=== PATIENT | female | born 1960 | race Caucasian/White ===

== ENCOUNTER 2024-07-26 23:08 | Day surgery (SDC) | payer MEDICAID, SELFPAY ==
[2024-07-26 23:08] VITALS: BMI 33.0
--- NOTE | 2024-07-26 23:11 | EKG_ITS ---
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
[2024-07-26 23:32] VITALS: BP 142/83; PULSE 78; RESP 19; TEMP 36.8; O2SAT 96
--- NOTE | 2024-07-26 23:44 | PD.EDRME ---
Rapid Medical Screening Exam RME Arrival date/time: 07/26/24 23:08 63-year-old female reports with complaints of epigastric abdominal pain that radiates to the back x 1 day Chief Complaint: Abdominal Pain Time Seen by Provider: 07/26/24 23:22 Vital signs: Vital Signs Temperature 98.2 F 07/26/24 23:32 Pulse Rate 78 07/26/24 23:32 Respiratory Rate 19 07/26/24 23:32 Blood Pressure 142/83 H 07/26/24 23:32 Pulse Oximetry (%) 96 07/26/24 23:32 Oxygen Delivery Method Room Air 07/26/24 23:32
[2024-07-27] VITALS (11 sets, daily range): BP systolic 114–161; BP diastolic 67–114; PULSE 66–83; RESP 15–20; TEMP 36.4–36.9; O2SAT 95–100
--- NOTE | 2024-07-27 | XR_ITS ---
Examination: Abdomen sonogram, Limited Date and time of exam: July 27, 2024 0033 hrs. Indications: Onset epigastric pain nausea vomiting today Technique: Real-time sky scale transabdominal sonographic images of the upper abdomen obtained. Findings: Multiple gallstones Gallbladder wall is thickened 0.56 cm Common bile duct 0.3 cm Pancreas obscured by bowel gas Liver 16 cm fatty infiltration lobular contour Normal hepatopedal portal venous flow Patent IVC Impression: Cholelithiasis Suspicious for acute cholecystitis, consider HIDA scan or MRCP follow-up Cirrhosis versus primary hepatocellular disease
[2024-07-27] MEDS: MG HYD/AL HYD/SIME (Maalox Reg) SUSP 30 ML UDC PO (00:14)
[2024-07-27] MEDS: LIDOCAINE VISCOUS 2% 15 ML UDC PO (00:14)
[2024-07-27 00:40] LABS: Alanine Aminotransferase 18 U/L (10-49); Albumin, Serum 4.8 gm/dL (3.4-4.8); Albumin/Globulin Ratio 1.8 (1.2-2.2); Alkaline Phosphatase 61 U/L (46-116); Anion Gap 8 (7-16); Aspartate Amino Transferase 15 U/L (0-34); BUN/Creatinine Ratio 11 Ratio (12-20); Bilirubin,Total 0.7 mg/dL (0.3-1.2); Blood Urea Nitrogen 12 mg/dL (9-23); Calcium 10.3 mg/dL (8.3-10.6); Calcium (Corrected) 10.3 mg/dL (8.5-10.1); Carbon Dioxide 30.4 mMol/L (20.0-31.0); Chloride 101 mMol/L (98-107); Creatinine (Component) 1.1 mg/dL (0.6-1.3); Estimated Creatinine Clearance 61.7 mL/min (>60); Globulin 2.7 gm/dL (2.3-3.5); Glucose 150 mg/dL (74-106); Lipase 28 U/L (12-53); Osmolality,Calculated 280 (275-295); Potassium 3.9 mMol/L (3.4-5.1); Sodium 139 mMol/L (136-145); Total Protein 7.5 gm/dL (5.7-8.2); eGFR 57 See Note
--- NOTE | 2024-07-27 00:42 | EDNOTE_ITS ---
ED Abdominal Pain RME/HPI General Chief Complaint: Abdominal Pain Stated complaint: UPPER ABD PAIN X 1DAY Time seen by provider: 07/26/24 23:22 Arrival date/time: 07/26/24 23:08 RME / HPI RME / HPI narrative: 07/26/24 23:08 63-year-old female reports with complaints of epigastric abdominal pain that radiates to the back x 1 day ----- Dr. Carroll?s Main ED Evaluation: 63yo female presents to the ED for a chief co mplaint of intermittent epigastric pain x 2 days. Patient states her pain radiates to her RUQ and her back. She states her pain started after she ate a piece of candy 2 days ago, but subsided on its own. She states she ate a bag of potato chips tonight and her pain returned, so she came in for evaluation. She endorses having a history of problems with gas in the past. She denies any N/V/D, fever, chills or any other associated symptoms. Denies any previous abdominal surgeries. No known allergies. Related Data Home Medications ?Medication ?Instructions ?Recorded ?Confirmed celecoxib 200 mg capsule 200 mg PO QDAY 12/24/19 04/12/20 duloxetine 30 mg capsule,delayed 30 mg PO BID 12/24/19 04/12/20 release hydrocodone 10 mg-acetaminophen 1 tab PO Q6H PRN Pain (Scale Score 12/24/19 04/12/20 325 mg tablet 7-10) tramadol 100 mg tablet 100 mg PO QID 12/24/19 04/12/20 meloxicam 15 mg tablet 15 mg PO QDAY 04/12/20 04/12/20 Previous Rx's ?Medication ?Instructions ?Recorded oxycodone-acetaminophen 10 mg-325 1 tab PO Q6H PRN pain #10 tabs 07/27/24 mg tablet (Percocet) Allergies Allergy/AdvReac Type Severity Reaction Status Date / Time No Known Allergies Allergy Verified 07/27/24 13:47 Review of Systems Review of Systems Systems Reviewed: All systems reviewed, normal except as documented Past Medical History Past Medical History NEUROLOGIC: Negative Neurological Disorders or Seizures CARDIAC: Positive Heart Murmur; Negative Cardiac Disorders, Congestive Heart Failure, Edema or Cellulitis RESPIRATORY: Negative Chronic Obstructive Pulmonary Disease (COPD) or Asthma GASTROINTESTINAL: Negative Gastrointestinal Disorders or Hepatitis GENITOURINARY: Negative Genitourinary Disorders or Renal Disease REPRODUCTIVE: Negative Previous Pregnancies MUSCULOSKELETAL: Positive Musculoskeletal Disorders and Arthritis ENDOCRINE: Negative Endocrine Disorders, Diabetes Mellitus Type 1 or Diabetes Mellitus Type 2 HEMATOLOGIC: Negative Blood Disorders or Sickle Cell Disease PSYCHO/SOCIAL: Positive Depression and Anxiety OTHER HISTORY: Positive Chicken Pox; Negative Hospitalization, Autoimmune Disease, Shingles, Falls, Blood Transfusions, Blood Transfusion Reaction, Anesthesia Reactions, Chemotherapy, Radiation Therapy, MRSA, Measles, Mumps or Cancer Family History FAMILY HISTORY: Positive Family Psychiatric Problems, Family Respiratory Disorders, Family Cardiac Disorders, Family Cancer and Family Surgery; Negative Family Gastrointestinal Problems or Family Anesthesia Reaction Surgical History SURGICAL: Negative Cardiac Surgery or Pacemaker Social History SMOKING STATUS: Never smoker SUBSTANCE USE: does not use ED Exam Narrative Physical exam: GENERAL APPEARANCE: AxOx4, generally well-appearing, no acute distress. HEENT: NC, AT. MMM. EOMI, clear conjunctiva, oropharynx clear. NECK: Supple without lymphadenopathy. No stiffness or restricted ROM. HEART: Normal rate and regular rhythm, normal S1/S1, no m/r/g LUNGS: CTAB, moving air well. No crackles or wheezes are heard. ABDOMEN: Soft, yarvpamw-au-bzhelt epigastric and RUQ pain with involuntary guarding, unable to assess for Valencia sign, nondistended with good bowel sounds heard. BACK: No midline C/T/L spine pain or deformity, No CVAT, no obvious deformity. EXTREMITIES: Without cyanosis, clubbing or edema. MUSCULOSKELETAL: FROM of all major joints, no chest tenderness NEUROLOGICAL: Grossly nonfocal. Alert and oriented, moving all 4 extremities. CN not formally tested but appear grossly intact. Skin: Warm and dry without any rash. Course Quality Measures none Orders Category Date Time Status Place in Surgical Day Care Routine Admission 07/27/24 07:37 Active Activity as Tolerated Routine Care 07/27/24 07:37 Ordered COVID-19 Screening Questionnaire NOW Care 07/27/24 07:28 Completed DC Home When Criteria Met . Care 07/27/24 13:13 Completed Decision to Admit X1 Care 07/27/24 07:28 Completed EKG (ED ONLY) *Do not use* NOW Care 07/26/24 23:12 Completed NPO NOW Care 07/27/24 02:53 Completed Obtain Written Consent For: NOW Care 07/27/24 07:37 Completed Diet NPO (NOW) Diet 07/27/24 02:53 Active Discharge Routine Discharge 07/27/24 13:35 Active EKG (ED Only) Stat Exams 07/26/24 23:11 Draft US abdomen limited Stat Exams 07/27/24 00:00 Completed CBC Stat Lab 07/26/24 23:59 Completed CMP [Comprehensive Metabolic Panel] Stat Lab 07/26/24 23:59 Completed Lipase Stat Lab 07/26/24 23:59 Completed Acetaminophen Ivpb [Ofirmev Inj] 100 ml Med 07/27/24 12:19 Discontinued IV .STK-MED Acetaminophen Supp [Tylenol Supp] Med 07/27/24 01:22 Discontinued 650 mg IL X1 ONE Acetaminophen Tab [Tylenol Tab] Med 07/27/24 07:37 Discontinued 650 mg PO Q6H PRN Acetaminophen Tab [Tylenol Tab] Med 07/27/24 01:36 Discontinued 650 mg PO X1 ONE Bupivacaine Mpf 0.5% [Sensorcaine-Mpf Inj 0.5%] Med 07/27/24 12:03 Discontinued 30 ml .ROUTE .STK-MED ONE Cefoxitin [Mefoxin Inj] Med 07/27/24 12:29 Discontinued 2 gm .ROUTE .STK-MED ONE HYDROmorphone INJ [Dilaudid Inj] Med 07/27/24 13:13 Discontinued 0.5 mg IV Q5M PRN Ketorolac Inj [Toradol Inj] Med 07/27/24 01:36 Discontinued 15 mg IM X1 ONE Ketorolac Inj [Toradol Inj] Med 07/27/24 07:37 Discontinued 15 mg IVP Q6H PRN Ketorolac Inj [Toradol Inj] Med 07/27/24 01:22 Discontinued 15 mg IVP X1 ONE Lidocaine 2% Pf 5 ml [Xylocaine 2% Pf 5 ml] Med 07/27/24 11:49 Discontinued 5 ml .ROUTE .STK-MED ONE Lidocaine 2% Viscous [Xylocaine 2% Viscous] Med 07/26/24 23:59 Discontinued 15 ml PO X1 ONE Morphine Inj Med 07/27/24 07:37 Discontinued 2 mg IVP Q4H PRN Ondansetron Inj [Zofran Inj] Med 07/27/24 13:13 Discontinued 4 mg IV X1 ONE PHENYLEPHRINE INJ in NS [Sergey-synephrine Inj/Ns] Med 07/27/24 12:30 Discontinued 1,000 mcg .ROUTE .STK-MED ONE Phenylephrine Inj [Phenylephrine] Med 07/27/24 12:30 Discontinued 10 mg .ROUTE .STK-MED ONE Piper/Tazo 3.375 gm [Zosyn] Med 07/27/24 14:00 Discontinued 3.375 gm in 50 ml IV Q8HR Piper/Tazo 3.375 gm [Zosyn] Med 07/27/24 08:00 Discontinued 3.375 gm in 50 ml IV X1 Propofol Inj [Diprivan Inj] Med 07/27/24 11:49 Discontinued 200 mg IV .STK-MED ONE Rocuronium Inj [Zemuron Inj] Med 07/27/24 11:49 Discontinued 100 mg .ROUTE .STK-MED ONE Sodium Chloride 0.9% 1000 ml [Ns] 1,000 ml Med 07/27/24 03:00 Discontinued IV 100 mls/hr Sodium Chloride 0.9% 1000 ml [Ns] 1,000 ml Med 07/27/24 07:45 Discontinued IV 125 mls/hr Sugammadex Inj [Bridion Inj] Med 07/27/24 12:59 Discontinued 200 mg .ROUTE .STK-MED ONE ePHEDrine SULF INJ Med 07/27/24 12:37 Discontinued 50 mg .ROUTE .STK-MED ONE fentaNYL INJ [Sublimaze Inj] Med 07/27/24 11:49 Discontinued 100 mcg .ROUTE .STK-MED ONE fentaNYL INJ [Sublimaze Inj] Med 07/27/24 12:49 Discontinued 100 mcg .ROUTE .STK-MED ONE fentaNYL INJ [Sublimaze Inj] Med 07/27/24 13:13 Discontinued 25 mcg IV Q5M PRN fentaNYL INJ [Sublimaze Inj] Med 07/27/24 13:13 Discontinued 50 mcg IV Q5M PRN hydrALAZINE INJ [Apresoline Inj] Med 07/27/24 13:13 Discontinued 5 mg IV Q20MIN PRN mg Hyd/Al Hyd/Mar Susp [Maalox Susp] Med 07/26/24 23:59 Discontinued 30 ml PO X1 ONE Oxygen Delivery PRN RT 07/27/24 13:13 Completed Reevaluation(s) Reevaluation #1: Patient reports minimal improvement of her symptoms after receiving GI cocktail. Additional medications ordered. Time: 01:20 Vital Signs Vital signs: Vital Signs Temperature 98.2 F 07/26/24 23:32 Pulse Rate 78 07/26/24 23:32 Respiratory Rate 19 07/26/24 23:32 Blood Pressure 142/83 H 07/26/24 23:32 Pulse Oximetry (%) 96 07/26/24 23:32 Oxygen Delivery Method Room Air 07/26/24 23:32 Pulse ox is 96% on room air, which is normal according to my interpretation. Abdominal Pain MDM MDM Narrative MDM Narrative:: Scribe Attestation: 07/27/24 - Shanell Cruz am scribing for and in the presence of Dr. Carroll. Patient data External records reviewed:: [facility] previous records (Per chart review, patient has no relevant previous ED visits.) Clinical information provided by:: patient Social determinants that could affect healthcare access:: none Patient has the following chronic illnesses:: none How is presenting disease/condition affected by chronic disease/condition?: no chronic disease Evaluation data The following diagnostics were reviewed and interpreted by me:: lab results, radiology exam(s) and EKG tracing(s) Lab and/or radiology exams considered but not ordered:: none Interpretation Summary: WBC count is slightly elevated at 11.2, CMP is normal, Lipase is normal, according to my interpretation. EKG done at 2329, NSR, rate of 76, normal intervals, normal axis, no acute ST or T-wave changes, according to my interpretation. ---- Telerad Preliminary Report Draft Patient: [facility]REY [facility]ARC[facility]. Record#: [id number] Birthdate: 1960 Age/Sex: 63 / F Location: [facility] Attending Dr: Ordering Physician: Date of Service: Procedure(s): Accession Number(s): cc: ~ Gallbladder ultrasound with doppler and wave doppler spectral analysis. July 27, 2024 at 0033 hours Clinical history: Epigastric abdominal pain. Comparison: No prior study is available for comparison. Findings: The study is limited by bowel gas. Echogenic liver. Lobular liver margins. Gallbladder wall thickening. Gallstones. No pericholecystic fluid is identified. The common duct is normal in caliber at 0.3 cm. No free fluid is demonstrated on the submitted images. The portal vein is patent with hepatopetal flow and normal wave Doppler spectral analysis. Impression: Gallstones and gallbladder wall thickening are suspicious for acute cholecystitis. Liver steatosis and possible cirrhosis. Report Electronically Signed By: Rakesh Gonzalez 07/27/2024 2:10:13 AM [EST] Medications / Prescriptions Medications or Prescriptions considered but not ordered:: none Medication administrations:: Medication Administration History Discontinued Medications Acetaminophen (Acetaminophen Supp 650 Mg Supp) 650 mg IL X1 ONE Stop: 07/27/24 01:23 Last Admin: 07/27/24 01:39 Dose: Not Given Documented By: CVL Non-Admin Reason: Cancelled by Provider Acetaminophen (Acetaminophen 325 Mg Tablet) 650 mg PO X1 ONE Stop: 07/27/24 01:37 Last Admin: 07/27/24 01:42 Dose: 650 mg Documented By: QUINCY Acetaminophen (Acetaminophen 325 Mg Tablet) 650 mg PO Q6H PRN PRN Reason: PAIN SCALE 1-3 (mild Stop: 08/26/24 07:36 Al Hydrox/Mg Hydrox/Simethicone (Mg Hyd/Al Hyd/Mar (Maalox Reg) Susp 30 Ml Udc) 30 ml PO X1 ONE Stop: 07/27/24 00:00 Last Admin: 07/27/24 00:14 Dose: 30 ml Documented By: Bupivacaine HCl (Bupivacaine Mpf 0.5% 10 Ml Vial) Confirm Administered Dose 30 ml .ROUTE .STK-MED ONE Stop: 07/27/24 12:04 Cefoxitin Sodium (Cefoxitin Sod Inj 1 Gm Vial) Confirm Administered Dose 2 gm .ROUTE .STK-MED ONE Stop: 07/27/24 12:30 Ephedrine Sulfate (Ephedrine Sulf Inj 50 Mg/Ml Vial) Confirm Administered Dose 50 mg .ROUTE .STK-MED ONE Stop: 07/27/24 12:38 Fentanyl Citrate (Fentanyl Cit Inj 50 Mcg/Ml Amp 2ml) Confirm Administered Dose 100 mcg .ROUTE .STK-MED ONE Stop: 07/27/24 11:50 Fentanyl Citrate (Fentanyl Cit Inj 50 Mcg/Ml Amp 2ml) Confirm Administered Dose 100 mcg .ROUTE .STK-MED ONE Stop: 07/27/24 12:50 Fentanyl Citrate (Fentanyl Cit Inj 50 Mcg/Ml Amp 2ml) 25 mcg IV Q5M PRN PRN Reason: PAIN SCALE 1-3 (mild Stop: 07/27/24 15:13 Fentanyl Citrate (Fentanyl Cit Inj 50 Mcg/Ml Amp 2ml) 50 mcg IV Q5M PRN PRN Reason: PAIN SCALE 4-6 (Moderate Stop: 07/27/24 15:13 Hydralazine HCl (Hydralazine Inj 20 Mg/Ml Vial) 5 mg IV Q20MIN PRN PRN Reason: SBP > 180 Stop: 07/27/24 15:13 Hydromorphone HCl (Hydromorphone Inj 2 Mg/Ml Vial) 0.5 mg IV Q5M PRN PRN Reason: PAIN SCALE 7-10 (Severe Stop: 07/27/24 15:13 Sodium Chloride (Ns) 1,000 mls @ 100 mls/hr IV .Q10H SUHAS Stop: 08/26/24 02:59 Last Infusion: 07/27/24 08:27 Dose: 0 mls/hr Documented By: Admin: 07/27/24 03:12 Dose: 100 mls/hr Documented By: QUINCY Sodium Chloride (Ns) 1,000 mls @ 125 mls/hr IV .Q8H [facility] Stop: 08/26/24 07:44 Last Admin: 07/27/24 08:28 Dose: 125 mls/hr Documented By: ANTONINA Piperacillin/Tazobactam/Dextrose (Zosyn) 3.375 gm in 50 mls @ 12.5 mls/hr IV Q8HR [facility]; Protocol Stop: 08/03/24 13:59 Piperacillin/Tazobactam/Dextrose (Zosyn) 3.375 gm in 50 mls @ 100 mls/hr IV X1 ONE Stop: 07/27/24 08:29 Last Infusion: 07/27/24 09:04 Dose: Infused Documented By: Admin: 07/27/24 08:33 Dose: 100 mls/hr Documented By: ANTONINA Acetaminophen (Ofirmev Inj) Confirm Administered Dose 100 mls @ ud IV .STK-MED ONE Stop: 07/27/24 12:20 Ketorolac Tromethamine (Ketorolac Inj 30 Mg/Ml Vial) 15 mg IVP X1 ONE Stop: 07/27/24 01:23 Last Admin: 07/27/24 01:39 Dose: Not Given Documented By: CVL Non-Admin Reason: Cancelled by Provider Ketorolac Tromethamine (Ketorolac Inj 60 Mg/2 Ml Vial) 15 mg IM X1 ONE Stop: 07/27/24 01:37 Last Admin: 07/27/24 01:42 Dose: 15 mg Documented By: QUINCY Ketorolac Tromethamine (Ketorolac Inj 30 Mg/Ml Vial) 15 mg IVP Q6H PRN PRN Reason: PAIN SCALE 4-6 (Moderate Stop: 08/01/24 07:36 Last Admin: 07/27/24 08:39 Dose: 15 mg Documented By: DB Lidocaine HCl (Lidocaine Viscous 2% 15 Ml Udc) 15 ml PO X1 ONE Stop: 07/27/24 00:00 Last Admin: 07/27/24 00:14 Dose: 15 ml Documented By: Lidocaine HCl (Lidocaine Inj Pf 2% 5 Ml Vial) Confirm Administered Dose 5 ml .ROUTE .STK-MED ONE Stop: 07/27/24 11:50 Morphine Sulfate (Morphine Sulf Inj 10 Mg/Ml Vial) 2 mg IVP Q4H PRN PRN Reason: PAIN SCALE 4-10(Mod-Sev Ondansetron HCl (Ondansetron Inj 2 Mg/Ml Inj 2 Ml) 4 mg IV X1 ONE Stop: 07/27/24 13:14 Phenylephrine HCl (Phenylephrine Inj 10 Mg/Ml Vial) Confirm Administered Dose 10 mg .ROUTE .STK-MED ONE Stop: 07/27/24 12:31 Phenylephrine HCl (Phenylephrine Inj In Ns 100 Mcg/Ml 10 Ml Syringe) Confirm Administered Dose 1,000 mcg .ROUTE .STK-MED ONE Stop: 07/27/24 12:31 Propofol (Propofol Inj 10 Mg/Ml Vial 20 Ml) Confirm Administered Dose 200 mg IV .STK-MED ONE Stop: 07/27/24 11:50 Rocuronium Brimley (Rocuronium Inj 10 Mg/Ml Vial 10 Ml) Confirm Administered Dose 100 mg .ROUTE .STK-MED ONE Stop: 07/27/24 11:50 Sugammadex Sodium (Sugammadex Inj 100 Mg/Ml 2ml Vial) Confirm Administered Dose 200 mg .ROUTE .STK-MED ONE Stop: 07/27/24 13:00 see above Consultations Consultation(s) initiated? (list below): Yes Consultation #1 (Physician, Specialty, Details): Discussed case with [Dr. Reynoso] from [general surgery] regarding [consultation]. Discussed patients ED course, exam findings, labs, and radiology results. Will evaluate the patient in the morning. Time: 05:25 Diagnosis Differential diagnosis abdominal pain: diverticulitis, pancreatitis and other (cholelithiasis, cholecystitis) Most likely diagnosis given after review of the tests above:: see below Admission Indicated Admission indicated?: not indicated Explain why admission is indicated or not indicated:: pending evaluation by Dr. Reynoso. Admission Request Was there a request for admission?: No Disposition Plan Disposition Plan: other (specify) (Signed out to Dr. Fishman at [address] Reynoso.) Discharge Plan Plan Patient Disposition: Admit Acute Care w/in Hospital Disposition Comment: Dr. Reynoso Problem List Clinical Impression: Acute cholecystitis Patient/Caregiver Discharge Instructions Other Activity Instructions:: Avoid lifting objects greater than 10 pounds for 6 weeks You may resume showering in 2 days, on 07/29 Avoid bathing or swimming for 2 weeks Your stitches will not need to be removed If you develop worsening pain, nausea/vomiting, fever or jaundice please seek care in ER During the surgery we fill your abdomen with air in order to see the structures. Some of this air may linger after surgery and cause pain with deep breaths and/or pain that is referred to the shoulder. This will go away with time, walking will help the air to absorb faster
[2024-07-27 01:00] LABS: Basophils % (Auto) 0 % (0-2.5); Eosinophils # (Auto) 0.1 Thou/mm3 (0.0-0.5); Eosinophils % (Auto) 1 % (0-10); Hematocrit 45.4 % (36.0-46.0); Hemoglobin 15.4 g/dL (12.0-16.0); Immature Granulocytes % (Auto) 0 % (0-0); Immature Granulocytes Auto 0.03 Thou/mm3 (0.00-0.00); Lymphocytes # (Auto) 1.9 Thou/mm3 (1.0-4.8); Lymphocytes % (Auto) 17 % (10-50); Mean Corpuscular HGB Conc 33.9 g/dl (31.0-37.0); Mean Corpuscular Hemoglobin 30.9 pg (25.0-35.0); Mean Corpuscular Volume 91 fL (80-100); Monocytes # (Auto) 0.7 Thou/mm3 (0.0-0.8); Monocytes % (Auto) 6 % (0-12); Neutrophils # (Auto) 8.4 Thou/mm3 (1.8-7.7); Neutrophils % (Auto) 75 % (37-80); Nucleated Red Blood Cell % 0 /100 WBC (0); Platelet Count 180 Thou/mm3 (140-440); RDW Standard Deviation 42.2 fL (36.4-46.3); Red Blood Count 4.99 Miln/mm3 (4.00-5.20); White Blood Count 11.2 Thou/mm3 (3.6-11.0)
[2024-07-27] MEDS: KETOROLAC INJ 60 MG/2 ML VIAL 15 MG IM (01:42)
[2024-07-27] MEDS: ACETAMINOPHEN 325 MG TABLET 650 MG PO (01:42)
--- NOTE | 2024-07-27 02:10 | PRELIM_ITS ---
Gallbladder ultrasound with doppler and wave doppler spectral analysis. July 27, 2024 at 0033 hour s Clinical history: Epigastric abdominal pain.Comparison: No prior study is available for comparison. Findings:The study is limited by bowel gas.Echogenic liver. Lobular liver margins.Gallbladder wall t hickening.Gallstones.No pericholecystic fluid is identified. The common duct is normal in caliber at 0.3 cm. No free fluid is demonstrated on the submitted images.The portal vein is patent with hepatop etal flow and normal wave Doppler spectral analysis.Impression:Gallstones and gallbladder wall thicke yanet are suspicious for acute cholecystitis.Liver steatosis and possible cirrhosis. Report Electronic ally Signed By: Rakesh Gonzalez 07/27/2024 2:10:13 AM [EST]
[2024-07-27] MEDS: SODIUM CHLORIDE 0.9% 1000 ML 1,000 ML 100 ML IV (03:12)
--- NOTE | 2024-07-27 07:39 | PD.SURHP ---
HPI HPI 63F presenting with abdominal pain and nausea. Pt reports pain began yesterday after eating and has been present for 24 hours, it is severe in the RUQ and associated with nausea. She denies any history of similar pain, fever or diarrhea. Workup is indicative of acute cholecystitis PMH: Arthritis, depression PSHx: Extremity surgeries Meds: celecoxib, meloxicam Allergies: NKDA Social hx: Nonsmoker, no EtOH use Family hx: father had lung CA in his 40s Review of Systems Review of Systems ROS Unobtainable: All systems reviewed & no additional complaints except as documented Meds Home Medications and Allergies Home Medications ?Medication ?Instructions ?Recorded ?Confirmed ?Type celecoxib 200 mg capsule 200 mg PO QDAY 12/24/19 04/12/20 History duloxetine 30 mg capsule,delayed 30 mg PO BID 12/24/19 04/12/20 History release hydrocodone 10 mg-acetaminophen 1 tab PO Q6H PRN Pain (Scale Score 12/24/19 04/12/20 History 325 mg tablet 7-10) tramadol 100 mg tablet 100 mg PO QID 12/24/19 04/12/20 History meloxicam 15 mg tablet 15 mg PO QDAY 04/12/20 04/12/20 History Allergies Allergy/AdvReac Type Severity Reaction Status Date / Time No Known Allergies Allergy Verified 07/26/24 23:10 Exam Vital Signs Temp Pulse Resp BP Pulse Ox O2 Del Method 98.0 F 69 18 130/74 98 Room Air 07/27/24 01:44 07/27/24 01:44 07/27/24 01:44 07/27/24 01:44 07/27/24 01:44 07/27/24 01:44 Constitutional Constitutional: no acute distress Routine Respiratory Exam Respiratory: Present no resp distress Routine Abdominal Exam Abdominal: Present soft and tenderness (+RUQ tenderness); Absent distended, rebound or guarding Results Results: Laboratory Laboratory results: results reviewed Results: Imaging US - abdomen: report reviewed Assessment & Plan Plan 63F presenting with signs and symptoms of acute cholecystitis. I explained benefits/risks of surgery including need for conversion to open, bleeding, infection, and injury to nearby structures/biliary leak requiring further procedures or surgery which would require transfer to another facility. Pt expressed understanding and agrees to proceed Quality Measures Quality Measures none
[2024-07-27] MEDS: SODIUM CHLORIDE 0.9% 1000 ML 1,000 ML 125 ML IV (08:28)
[2024-07-27] MEDS: PIPER/TAZO 3.375 GM 3.375 GM/50 ML BAG IV (08:33)
[2024-07-27] MEDS: KETOROLAC INJ 30 MG/ML VIAL 15 MG IVP (08:39)
--- NOTE | 2024-07-27 09:58 | EDNOTE_ITS ---
Emergency Room Addendum Addendum Narrative: 0600: Care assumed from Dr. Carroll, the previous shift emergency physician. Past medical, surgical, social and family history reviewed. Vitals and home medications reviewed. I will assume the care of the patient at this time, pending surgeon Dr. Reynoso to evaluate patient in the ED. Please refer to the emergency department record for history and examination from initial visit.? Nursing notes reviewed by me. Vital signs reviewed by me. [place] medical records reviewed by me. 0725: Surgeon Dr. Reynoso has evaluated the patient and will admit to her service. DISPOSITION: Admit to [facility] [place] DIAGNOSIS: Acute cholecystitis
--- NOTE | 2024-07-27 13:28 | PD.SUROPNT ---
Date of Procedure 07/27/24 Pre Op Diagnosis Acute cholecystitis Post Op Diagnosis Same Procedure Laparoscopic cholecystectomy Findings Inflamed gallbladder containing stones Procedure Description After discussion of risks and benefits, patient was brought to the operating room, SCDs were placed and general anesthesia was induced. She received preoperative antibiotics and was prepped and draped in the usual sterile fashion. After timeout a supraumbilical incision was made with a #15 blade and the skin was elevated with towel clamps. A Veress needle was placed through the incision and proper positioning was confirmed with a drop test. The abdomen was insufflated to 15 mmHg at which point the Veress was exchanged for a 5 mm camera using a Visiport technique. There were no signs of injury from the point of entry. 3 additional ports were placed under direct vision, one 12 mm at the epigastrium, one 5 mm right subcostal and one 5 mm right anterior axillary line. Patient was placed in reverse Trendelenburg. The gallbladder was noted to be tense it was first aspirated with return of approximately 40 cc of bile. At that point the fundus was grasped and retracted cephalad and the infundibulum was grasped and retracted laterally. The critical view of safety was achieved and the cystic duct and cystic artery were clipped and transected in the usual fashion. The gallbladder was removed from the gallbladder bed using electrocautery. Hemostasis of the gallbladder bed was achieved with electrocautery. The specimen was removed in an Endo Catch bag via the epigastric port and the epigastric fascia was closed with a 0 Vicryl suture using a Dion-Adrienne. Again the gallbladder bed was inspected and there were no signs of bleeding. Pneumoperitoneum was released and ports were removed under direct vision. Incisions were irrigated and infiltrated with half percent Marcaine for a total of 30 cc. Incisions were closed with 4 Monocryl and reinforced with Dermabond. Patient was extubated and brought to PACU in stable condition Pathology / specimen Other (Gallbladder with stones) Estimated Blood Loss 25 Surgeon Wen Reynoso MD Surgical Staff Operation Date: 07/27/24 12:15 Case Staff YARD WORKER: Pramod Trevizo RNpulmonologist/intensivist: Poonam Mario
--- NOTE | 2024-07-27 13:29 | SUR.PHASEI ---
1329 Patient arrived to recovery resting comfortably in [facility], oral airway removed upon arrival, breathing unlabored, vital signs stable, denies pain, dressing intact to abdomen; dermabond x4 ports, no bleeding noted, lung sounds clear upon auscultation, bilateral radial pulses present when palpated, report received from Florentino JARQUIN and Hanna Mckeon CRNA
--- NOTE | 2024-07-27 13:31 | ESDS_ITS ---
Planned Discharge Date 07/27/24 DS: Providers Provider Primary care physician: Genaro Alvarez MD Attending Provider on Admission: Wen Reynoso MD Attending Provider on DC: Wen Reynoso MD Discharging Provider: Wen Reynoso MD Diagnosis Discharge Diagnosis (1) Acute cholecystitis: Status: Acute Problem List Completed Was Problem List Reviewed/Reconciled?: Yes Hospital Course Patient presented with signs and symptoms of acute cholecystitis. She underwent laparoscopic cholecystectomy 07/27 which proceeded without complication Exam Vital Signs Temp Pulse Resp BP Pulse Ox O2 Del Method 98.2 F 83 18 153/74 H 98 Room Air 07/27/24 10:31 07/27/24 10:31 07/27/24 10:31 07/27/24 10:31 07/27/24 10:31 07/27/24 10:31 Constitutional Constitutional: no acute distress Routine Respiratory Exam Respiratory: Present no resp distress Routine Abdominal Exam Abdominal: Present soft; Absent tenderness or distended Discharge Plan Plan Patient Disposition: HOME (Self Care) Disposition Comment: Dr. Reynoso Prescriptions/Referrals Prescriptions/Med Rec: New oxycodone-acetaminophen [Percocet] 10-325 mg tablet 1 tab PO Q6H MDD 6 tabs PRN (Reason: pain) Qty: 10 0RF No Action celecoxib 200 mg Capsule 200 mg PO QDAY hydrocodone-acetaminophen 10-325 mg Tablet 1 tab PO Q6H PRN (Reason: Pain (Scale Score 7-10)) duloxetine 30 mg Capsule,Delayed Release(Dr/Ec) 30 mg PO BID tramadol 100 mg Tablet 100 mg PO QID meloxicam 15 mg Tablet 15 mg PO QDAY Referrals: Wen Reynoso MD [Physician] - (You will receive a phone call to confirm a follow-up appointment with me in 2 weeks ) Genaro Alvarez MD [Primary Care Provider] - In 1 week Patient/Caregiver Discharge Instructions Other Discharge Activity Instructions:: Avoid lifting objects greater than 10 pounds for 6 weeks You may resume showering in 2 days, on 07/29 Avoid bathing or swimming for 2 weeks Your stitches will not need to be removed If you develop worsening pain, nausea/vomiting, fever or jaundice please seek care in ER During the surgery we fill your abdomen with air in order to see the structures. Some of this air may linger after surgery and cause pain with deep breaths and/or pain that is referred to the shoulder. This will go away with time, walking will help the air to absorb faster Education Materials: Cholecystectomy Laparoscopic Dc Print Language: Yoruba Stand Alone Forms: Juliette Award Info., Patient Portal Info Letter Discharge Order Discharge Orders: Discharge (Routine); Ordered 07/27/24 Ordered By: Wen Reynoso Results Results: Laboratory Laboratory results: results reviewed Results: Imaging US - abdomen: report reviewed Procedures Procedure Date 07/27/24 Procedures Laparoscopic cholecystectomy
--- NOTE | 2024-07-27 14:55 | SUR.PHASEII ---
1455 Patient meets discharge criteria from recovery, awake and alert, breathing unlabored, vital signs stable, denies pain states, I'm just sore , ate a jello and drinking apple juice; denies nausea, patient assisted with dressing into her clothing by this group underwriter, discharge instructions given to patient and patients sister Eli Benitez signed discharge instructions. Patient given all her belongings prior to discharge, transported via wheelchair and left in a private vehicle.
== END 2024-07-27 14:55 | disposition home or self-care (01) ==
LOC: SERX 07-27 07:58 → S2EX 07-27 08:19
PROVIDERS: Physician Assistant; Emergency Provider Emergency Medicine; PCP Family Medicine; Referring Provider Surgery; Visit Provider Surgery
PROC: 0FT44ZZ Resection of Gallbladder, Percutaneous Endoscopic Approach (ICD-10-PCS; CPT 47562; principal; 2024-07-27 12:00)
DX: K80.12 Calculus of gallbladder with acute and chronic cholecystitis without obstruction (principal); K76.0 Fatty (change of) liver, not elsewhere classified; Z01.810 Encounter for preprocedural cardiovascular examination
CPT/HCPCS: 47562; 36415; 76705; 80053; 81001; 83690; 84484; 85025; 85610; 85730; 96361; 96365; 96372; 99285; A4217; A4649; J0131; J0694; J1885; J2371; J2543; J2704; J3010; J3490; J7030; A9270

== ENCOUNTER 2024-08-09 13:03 | Outpatient (AMB) | payer MEDICAID, SELFPAY ==
[2024-08-09 14:24] VITALS: BP 132/85; PULSE 91; RESP 18; TEMP 36.4; O2SAT 98; BMI 33.9
--- NOTE | 2024-08-09 14:24 | GSCOFFNT_ITS ---
Vital Signs - [facility] 08/09/24 14:24 Height 1.68 m Height Method Stated Weight 95.736 kg Weight Measurement Method Standing Scale BMI 33.9 BP 132/85 H Blood Pressure Source Automatic Cuff Blood Pressure Location Right Upper Arm Position Sitting Respiration 18 Pulse 91 Pulse Source Monitor Temp 97.5 F Temp Source Temporal Artery Scan Pulse Oximetry (%) 98 Oxygen Delivery Method Room Air Med/Allergies Allergies & Medications Allergies No Known Drug Allergies Allergy (Verified 08/09/24 14:25) Medication Reconciliation celecoxib 200 mg capsule 200 mg PO QDAY 12/24/19 [History Confirmed 08/09/24] duloxetine 30 mg capsule,delayed release 30 mg PO BID 12/24/19 [History Confirmed 08/09/24] tramadol 100 mg tablet 100 mg PO QID 12/24/19 [History Confirmed 08/09/24] meloxicam 15 mg tablet 15 mg PO QDAY 04/12/20 [History Confirmed 08/09/24] MA Intake Visit Data Collection New Patient or Established: Established Patient (seen at [facility] within 3 years) Seen by Clinical Staff ONLY (RN/MA): No Reason for Visit:: POST OP LAP ENZO Pain Present Currently: Yes Pain Location: Abdomen Pain scale:: 5 (COMES AND GOES) Pain Scale Used: Sandoval-Wilde/[employer] Manager Required: No PCP or OBGYN visit in last 3 months: Yes Hx Now: No Do You Feel Safe at Home: Yes Authorities Contacted: N/A Smoking Status Smoking Status: Never smoker Immunization / Flu Flu Vaccine in the Last 12 Months: No Flu Vaccine Exclusion Criteria: No Exclusion Criteria Past Medical History Past Medical History NEUROLOGIC: Negative Neurological Disorders or Seizures CARDIAC: Positive Heart Murmur; Negative Cardiac Disorders, Congestive Heart Failure, Edema or Cellulitis RESPIRATORY: Negative Chronic Obstructive Pulmonary Disease (COPD) or Asthma GASTROINTESTINAL: Negative Gastrointestinal Disorders or Hepatitis GENITOURINARY: Negative Genitourinary Disorders or Renal Disease REPRODUCTIVE: Negative Previous Pregnancies MUSCULOSKELETAL: Positive Arthritis ENDOCRINE: Negative Endocrine Disorders, Diabetes Mellitus Type 1 or Diabetes Mellitus Type 2 HEMATOLOGIC: Negative Blood Disorders or Sickle Cell Disease PSYCHO/SOCIAL: Positive Depression and Anxiety OTHER HISTORY: Positive Chicken Pox; Negative Hospitalization, Autoimmune Disease, Shingles, Falls, Blood Transfusions, Blood Transfusion Reaction, Anesthesia Reactions, Chemotherapy, Radiation Therapy, MRSA, Measles, Mumps or Cancer Family History FAMILY HISTORY: Positive Family Psychiatric Problems, Family Respiratory Disorders, Family Cardiac Disorders, Family Cancer and Family Surgery; Negative Family Gastrointestinal Problems or Family Anesthesia Reaction Surgical History SURGICAL: Negative Cardiac Surgery or Pacemaker Social History SMOKING STATUS: Smoking status: Never smoker ALCOHOL: Alcohol Intake: Current HOUSING: Housing: Apartment HPI HPI Narrative 64F s/p lap enzo 07/27 for acute cholecystitis here for planned follow up. Pt reports feeling well overall with pain controlled, just mild soreness in the RUQ, no nausea, tolerating diet and remaining afebrile. Pt denies diarrhea but states her BMs are softer than usual and she has reintroduced foods that used to cause her pain such as spaghetti and pizza without any difficulty ROS Review of Systems Systems Reviewed: All systems reviewed, normal except as documented Objective/Exam General General Appearance: alert, cooperative and well groomed Resp Respiratory exam: Absent respiratory distress Abdominal Abdominal exam: Present soft and incision (c/d/i, no erythema, no fluctuance or tenderness); Absent distention or tenderness Results Pathology of gallbladder: chronic cholecystitis with cholelithiasis Assessment & Plan Diagnosis / Problem List (1) Acute cholecystitis: Status: Acute Assessment & Plan: 64F s/p lap enzo 07/27, recovering well Plan: Avoid strenuous activity including lifting objects >10lbs for 6 weeks F/u as needed Office Procedures GNS Level of Care Nursing/Assessment Patient Status: Established Patient Nursing Assessment/Reassesment: Medication Reconciliation, Update PMH in EMR and Vital Signs Coordination of Care: Complex Care and Chronic Disease 1-5, Education Complex Pt/Fam, Consent,records obtained, informed consent, Results/Orders obtained and Staff clarify orders Established Patient Charge Established Patient Point Assignment: 95 Established Patient Point Charge: EP Level 3 (80-115) Patient Portal Questionaires Social History Living Situation History Housing: Apartment Tobacco History Smoking Status: Never smoker Alcohol History Alcohol Intake: Current Domestic Abuse History Do You Feel Safe at Home: Yes Review of Systems Report any current symptoms Only answer those that you have currently: Past Medical History Past Medical History Have you ever been diagnosed with any of the following: Neurological Problems Seizures: No Cardiology Problems Heart Murmur: Yes Congestive Heart Failure: No Edema: No Cellulitis: No Respiratory Problems Chronic Obstructive Pulmonary Disease (COPD): No Asthma: No Stomache/Intestinal Problems Hepatitis: No Genital/Urinary Problems Renal Disease: No Reproductive Problems Previous Pregnancies: No Musculoskeletal Problems Arthritis: Yes Endocrine Problems Diabetes Mellitus Type 1: No Diabetes Mellitus Type 2: No Blood Problems Sickle Cell Disease: No Psychologic Problems Depression: Yes Anxiety: Yes Other Problems Hospitalization: No Autoimmune Disease: No Shingles: No Falls: No Blood Transfusions: No Blood Transfusion Reaction: No Anesthesia Reactions: No Chemotherapy: No Radiation Therapy: No MRSA: No Chicken Pox: Yes Measles: No Mumps: No Cancer: No Surgical History Pacemaker: No
== END 2024-08-09 14:48 | disposition home or self-care (01) ==
LOC: HODSRG 13:03
PROVIDERS: PCP Family Medicine; Referring Provider Family Medicine; Supervising Provider Surgery; Visit Provider Surgery
DX: Z48.815 Encounter for surgical aftercare following surgery on the digestive system (principal)
CPT/HCPCS: 99213; G0463

== ENCOUNTER 2024-08-27 15:12 | Emergency (ER) | payer MEDICAID, SELFPAY ==
[2024-08-27 15:33] VITALS: BP 132/85; PULSE 85; RESP 20; O2SAT 95; BMI 35.6
--- NOTE | 2024-08-27 15:41 | XR_ITS ---
Examination: Hand, left 3 views Technique: Hand AP, oblique, lateral 3 views Date and time of exam: August 27, 2024 1401 hours INDICATIONS: Injury to the hand today with first digit pain FINDINGS: Significant osteopenia Significant arthritis distal interphalangeal joints Advanced arthritic change first carpometacarpal joint IMPRESSION: No acute fracture
--- NOTE | 2024-08-27 15:42 | PD.EDHAND ---
Upper Extremity Injury RME/HPI General Chief Complaint: Hand/Wrist Problems Stated Complaint: Left hand pain X 4 days Time Seen by Provider: 08/27/24 15:42 Source: patient Arrival date/time: 08/27/24 15:12 64-year-old female with no known medical history presents to the emergency room with a chief complaint of left hand pain x 4 days. Mode of arrival: ambulatory Limitations: no limitations Related Data Home Medications ?Medication ?Instructions ?Recorded ?Confirmed celecoxib 200 mg capsule 200 mg PO QDAY 12/24/19 08/09/24 duloxetine 30 mg capsule,delayed 30 mg PO BID 12/24/19 08/09/24 release tramadol 100 mg tablet 100 mg PO QID 12/24/19 08/09/24 meloxicam 15 mg tablet 15 mg PO QDAY 04/12/20 08/09/24 Previous Rx's ?Medication ?Instructions ?Recorded naproxen 500 mg tablet 500 mg PO BID PRN pain #14 tabs 08/27/24 Allergies Allergy/AdvReac Type Severity Reaction Status Date / Time No Known Drug Allergies Allergy Verified 08/27/24 15:15 Review of Systems Review of Systems Systems Reviewed: All systems reviewed, normal except as documented Constitutional Constitutional: Reports system reviewed and no additional complaints, except as documented, Denies fatigue, Denies fever(s), Denies headache(s) and Denies weakness Eyes Eyes: Reports system reviewed and no additional complaints, except as documented, Denies blurry vision and Denies change in vision ENT Ears, Nose, Mouth, and Throat: Reports system reviewed and no additional complaints, except as documented, Denies otalgia, Denies headache(s), Denies nasal congestion, Denies throat swelling and Denies vertigo Cardiovascular Cardiovascular: Reports system reviewed and no additional complaints, except as documented, Denies chest pain, Denies dyspnea and Denies dyspnea on exertion Respiratory Respiratory: Reports system reviewed and no additional complaints, except as documented, Denies chest congestion, Denies cough, Denies dyspnea, Denies dyspnea on exertion and Denies wheezing Gastrointestinal Gastrointestinal: Reports system reviewed and no additional complaints, except as documented, Denies abdominal pain, Denies cramping, Denies nausea and Denies vomiting Genitourinary Genitourinary: Reports system reviewed and no additional complaints, except as documented Musculoskeletal Musculoskeletal: Reports system reviewed and no additional complaints, except as documented, Reports arthralgias, Denies back pain, Denies deformity, Denies joint swelling, Reports limited range of motion, Denies numbness, Denies stiffness and Denies tingling Integumentary/Breasts Skin/Breast: Reports system reviewed and no additional complaints, except as documented and Denies wounds Neurologic Neurologic: Reports system reviewed and no additional complaints, except as documented, Denies confusion, Denies headache(s), Denies lack of coordination, Denies numbness, Denies tingling, Denies vertigo and Denies weakness Psychiatric Psychiatric: Reports system reviewed and no additional complaints, except as documented, Denies anxiety, Denies confusion, Denies depression, Denies paranoia, Denies suicidal ideation and Denies tactile hallucinations Endocrine Endocrine: Reports system reviewed and no additional complaints, except as documented and Denies fatigue Hematologic/Lymphatic Hematologic/Lymphatic: Reports system reviewed and no additional complaints, except as documented and Denies lymphadenopathy Allergic/Immunologic Allergic/Immunologic: Reports system reviewed and no additional complaints, except as documented, Denies throat swelling, Denies urticaria and Denies wheezing Past Medical History Past Medical History NEUROLOGIC: Negative Neurological Disorders or Seizures CARDIAC: Positive Heart Murmur; Negative Cardiac Disorders, Congestive Heart Failure, Edema or Cellulitis RESPIRATORY: Negative Chronic Obstructive Pulmonary Disease (COPD) or Asthma GASTROINTESTINAL: Negative Gastrointestinal Disorders or Hepatitis GENITOURINARY: Negative Genitourinary Disorders or Renal Disease REPRODUCTIVE: Negative Previous Pregnancies MUSCULOSKELETAL: Positive Musculoskeletal Disorders and Arthritis ENDOCRINE: Negative Endocrine Disorders, Diabetes Mellitus Type 1 or Diabetes Mellitus Type 2 HEMATOLOGIC: Negative Blood Disorders or Sickle Cell Disease PSYCHO/SOCIAL: Positive Depression and Anxiety OTHER HISTORY: Positive Chicken Pox; Negative Hospitalization, Autoimmune Disease, Shingles, Falls, Blood Transfusions, Blood Transfusion Reaction, Anesthesia Reactions, Chemotherapy, Radiation Therapy, MRSA, Measles, Mumps or Cancer Family History FAMILY HISTORY: Positive Family Psychiatric Problems, Family Respiratory Disorders, Family Cardiac Disorders, Family Cancer and Family Surgery; Negative Family Gastrointestinal Problems or Family Anesthesia Reaction Surgical History SURGICAL: Negative Cardiac Surgery or Pacemaker Social History SMOKING STATUS: Never smoker SUBSTANCE USE: does not use ED Exam General Limitations: Present no limitations General appearance: Present alert and in no apparent distress Head Head exam: Present atraumatic Eye Eye exam: Present normal appearance, PERRL and EOMI ENT ENT exam: Present normal exam, normal oropharynx and mucous membranes moist Neck Neck exam: Present normal inspection, full ROM and trachea midline Chest Chest inspection: Present normal inspection and symmetric chest wall rise Respiratory Respiratory exam: Present normal lung sounds bilaterally Cardiovascular Cardiovascular exam: Present regular rate, normal rhythm and normal heart sounds Abdominal Exam Abdominal exam: Present soft and normal bowel sounds Extremities Exam Extremities exam: Present normal inspection and full ROM Expanded Upper Extremity Exam Shoulder exam: Present normal inspection Arm exam: Present normal inspection Elbow exam: Present normal inspection Forearm/Wrist exam: Present normal inspection Hand exam: Present tenderness; Absent full ROM Vascular exam: Normal capillary refill Back Exam Back exam: Present normal inspection and full ROM Neurological Exam Neurological exam: Present alert, oriented X3 and CN II-XII intact Psychiatric Psychiatric exam: Present normal affect and normal mood Skin Skin exam: Present warm, dry, intact and normal color Course Quality Measures none Orders Category Date Time Status XR hand comp LT min 3V Stat Exams 08/27/24 15:41 Completed Vital Signs Vital signs: Vital Signs Pulse Rate 85 08/27/24 15:33 Respiratory Rate 20 08/27/24 15:33 Blood Pressure 132/85 H 08/27/24 15:33 Pulse Oximetry (%) 95 08/27/24 15:33 Oxygen Delivery Method Room Air 08/27/24 15:33 O2 saturation 95% within normal limits Extremity Injury MDM Narrative MDM Narrative:: 64-year-old female with no known medical history presents to the emergency room with a chief complaint of left hand pain x 4 days. Patient is hemodynamically stable and in no apparent distress Patient denies any numbness tingling to the fingertips. There was no trauma or pulling injury. X-ray was completed and shows arthritis Patient was discharged and educated to follow-up with primary care provider return to the emergency room for any evidence of worsening symptoms a Patient data External records reviewed:: [facility] previous records Clinical information provided by:: patient Social determinants that could affect healthcare access:: none Patient has the following chronic illnesses:: No chronic illness How is presenting disease/condition affected by chronic disease/condition?: no chronic disease Evaluation data The following diagnostics were reviewed and interpreted by me:: lab results and radiology exam(s) Lab and/or radiology exams considered but not ordered:: Labs and radiology exams considered and ordered Interpretation Summary: Hand x-ray-no acute fracture or dislocation Medications / Prescriptions Medications or Prescriptions considered but not ordered:: N/A Medication administrations:: N/A Consultations Consultation(s) initiated? (list below): No Diagnosis Upper Extremity Injury Differential Diagnosis: sprain and strain of wrist, fracture of wrist, fracture of hand and other (Osteoarthritis) Most likely diagnosis given after review of the tests above:: Osteoarthritis Admission Indicated Admission indicated?: not indicated Admission Request Was there a request for admission?: No Disposition Plan Disposition Plan: Discharge Discharge Attestation Discharge Attestation: The patient and all family members were given an opportunity to ask questions and understood the discharge instructions. Discharge instructions specifically effects, indications for sooner follow up or return to the emergency department, and the expected course of current diagnosis. Patient condition: Stable Discharge Plan Plan Patient Disposition: HOME (Self Care) Disposition Comment: Stable Prescriptions/Referrals Prescriptions/Med Rec: New naproxen 500 mg tablet 500 mg PO BID PRN (Reason: pain) Qty: 14 0RF No Action celecoxib 200 mg Capsule 200 mg PO QDAY duloxetine 30 mg Capsule,Delayed Release(Dr/Ec) 30 mg PO BID tramadol 100 mg Tablet 100 mg PO QID meloxicam 15 mg Tablet 15 mg PO QDAY Problem List Clinical Impression: Arthritis Patient/Caregiver Discharge Instructions Education Materials: ED Osteoarthritis Additional Instructions: Please follow-up with your primary care provider in the next 24 to 40 hours. There is no fracture or dislocation. X-ray showed severe osteoarthritis. Please follow-up with your primary care provider For any evidence of worsening signs or symptoms return the emergency room immediately Print Language: Turkmen Stand Alone Forms: Juliette Award Info., Patient Portal Info Letter LETA/BARRY Supervising Physician LETA/BARRY Supervising Physician: Dr Carney
== END 2024-08-27 17:55 | disposition home or self-care (01) ==
PROVIDERS: Emergency Provider Emergency Medicine; PCP Family Medicine
DX: M19.042 Primary osteoarthritis, left hand (principal)
CPT/HCPCS: 73130; 99283